=== PATIENT | female | born 1960 | race Caucasian/White ===

== ENCOUNTER 2018-03-25 17:18 | Observation (INO) ==
[2018-03-25] MEDS ORDERED: Ondansetron 4 MG/2 ML VIAL IVP ONE (18:18)
[2018-03-25] MEDS ORDERED: 0.9 % Sodium Chloride 1,000 ML IVC ONE (18:18)
--- NOTE | 2018-03-25 18:36 | Emergency Department Note ---
Disposition Clinical Impression: Vertigo Vomiting Qualifiers: Vomiting type: unspecified Vomiting Intractability: intractable Nausea presence : with nausea Qualified Code(s): R11.2 - Nausea with vomiting, unspecified Disposition: Still a Patient Condition: Fair Forms: ED Satisfaction Letter Dizziness HPI - General Chief Complaint: ED Dizziness Stated Complaint: N/V Anxiety Attack from Time Seen by Provider: 03/25/18 18:14 Source: EMS Limitations: no limitations Nursing Notes Reviewed: Yes Vital Signs Reviewed: Yes - History of Present Illness HPI Narrative: Patient does have a history of a CVA 26 years ago with chronic difficulty moving her right upper extremity and presents today with vertiginous dizziness that began at home this morning around 8:00 and then significantly worsened at 3 :00 this afternoon however she has had this all day. She does have associated vomiting. No localized numbness or weakness of extremities, slurred speech, facial droop or confusion in no pain. No chest pain or abdominal pain or head pain. She denies any fever, blood in the urine or stool, skin rash. Social history: Smoker, occasional alcohol, no drugs I did review the previous record - Related Data Home Medications Medication Instructions Recorded Confirmed Aspirin [Lo-Dose Aspirin EC] 81 mg PO DAILY 05/15/17 03/25/18 LORazepam [Ativan] 0.25 - 0.5 mg PO DAILY 05/15/17 03/25/18 Lansoprazole [Prevacid] 30 mg PO DAILY 05/15/17 03/25/18 Cinnamon Bark [Cinnamon] 500 mg PO DAILY 03/25/18 03/25/18 Loratadine [Allergy Relief] 10 mg PO DAILY 03/25/18 03/25/18 Allergies Allergy/AdvReac Type Severity Reaction Status Date / Time acetaminophen [From Percocet] AdvReac Redness of Verified 03/25/18 18:27 Skin Oxycodone [From Percocet] AdvReac Redness of Verified 03/25/18 18:27 Skin Review of Systems: Constitutional: No fever Vision: No blurred vision ENT: No rhinorrhea Respiratory: No cough Allergic: No allergies : No blood in urine GI: No blood in stool Hematologic: No bruising Dermatologic: No skin rash Musculoskeletal: No pain in the extremities Neuro: No numbness of the extremities Past Medical History - Past Medical History Medical history: Reports: asthma, CVA, GERD Psychiatric history: Reports: anxiety, panic disorder 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 - Social History Smoking Status: Current some day smoker Smokeless Tobacco Status: No Alcohol use: Reports: occasionally Drug use: Reports: none Physical Exam CONSTITUTIONAL: Ill-appearing, upper body strength from side to side, breathing comfortably, skin color is good, no respiratory distress EYES: PERRL, EOMI, no scleral icterus NOSE: The nose is normal in appearance without rhinorrhea NECK: Supple without rigidity RESP: Normal chest excursion with respiration; breath sounds clear and equal bilaterally; no wheezes, rhonchi, or rales CARD: Regular rhythm, without murmurs, rub or gallop ABD: Non-distended; non-tender, soft, without rigidity, rebound or guarding SKIN: Normal for age and race; warm and dry; no apparent lesions, no rash NEUROLOGICAL: Patient is alert and oriented times three. Cranial nerves III- XII are intact. Sensory and motor functions are intact. Strength is 5/5 for flexion and extension in all 4 extremities. Patellar DTRS are equal and intact. Finger to nose testing is normal on the left than on the right side is negative my finger NIH stroke scale equals 2 - General Limitations: no limitations General appearance: alert, in no apparent distress Course Vital Signs Temperature 97.8 F 03/25/18 17:21 Pulse Rate 68 03/25/18 17:21 Respiratory Rate 18 03/25/18 17:21 Blood Pressure 120/74 03/25/18 17:21 O2 Sat by Pulse Oximetry 100 03/25/18 17:21 Temperature 97.8 F 03/25/18 18:09 Pulse Rate 68 03/25/18 18:09 Respiratory Rate 18 03/25/18 18:09 Blood Pressure 120/74 03/25/18 18:09 O2 Sat by Pulse Oximetry 100 03/25/18 18:09 Oxygen Delivery Oxygen Delivery Room Air Dizziness - MDM Narrative Medical decision making narrative: Patient's symptoms are concerning for CVA and seem atypical for the BPV or labyrinthitis. Head CT as well as labs are pending. I did review her EKG showing normal sinus rhythm with a rate of 61 without acute ischemic change. Patient will be admitted to the hospital. CT scan is pending 1839 - Lab Data Result diagrams: 03/25/18 17:24 03/25/18 17:24 Lab Results 03/25/18 03/25/18 Range/Units 17:24 17:24 WBC 6.3 (4.3-11.1) K/mcL RBC 4.66 (3.82-4.97) M/mcL Hgb 13.6 (11.5-15.4) g/dL Hct 38.4 (35.3-44.9) % MCV 82.4 L (83.0-100.0) fL MCH 29.2 (28.0-33.3) pg MCHC 35.4 (31.6-35.5) g/dL RDW 12.3 (11.5-14.5) % Plt Count 334 (140-400) K/mcL MPV 10.7 (9.4-12.4) fL Immature Gran % 0.2 (0-4) % Seg Neutrophils % 72.4 % Lymphocytes % 15.0 % Monocytes % 11.0 % Eosinophils % 0.8 % Basophils % 0.6 % Neutrophils # 4.6 (1.6-8.9) K/mcL Lymphocytes # 0.9 (0.6-4.6) K/mcL Monocytes # 0.7 (0.0-1.3) K/mcL Eosinophils # 0.1 (0.0-0.6) K/mcL Basophils # 0.0 (0.0-0.2) K/mcL Sodium 126 L (136-145) mEq/L Potassium 3.0 L (3.5-5.1) mEq/L Chloride 88 L (98-107) mEq/L Carbon Dioxide 21 L (23-29) mEq/L BUN 8 (6-20) mg/dL Creatinine 0.57 L (0.60-1.20) mg/dL Est GFR ( Amer) > 60 (> 60) Est GFR (Non-Af Amer) > 60 (> 60) BUN/Creatinine Ratio 14 (6-26) Glucose 105 (70-105) mg/dL Calculated Osmolality 261 L (280-300) Calcium 9.6 (8.6-10.3) mg/dL Total Bilirubin 1.2 H (0.3-1.0) mg/dL Direct Bilirubin 0.2 (0.0-0.2) mg/dL Indirect Bilirubin 1.0 (0.0-1.2) mg/dL AST 23 (13-39) Units/L ALT 18 (7-52) Units/L Alkaline Phosphatase 91 (34-104) Units/L Serum Total Protein 7.7 (6.4-8.9) g/dL Albumin 4.7 (3.5-5.7) g/dL Globulin 3.0 (2.4-3.5) g/dL Albumin/Globulin Ratio 1.6 (1.1-2.2) Lipase 42 (11-82) Units/L NIH Stroke Scale - Level of Consciousness LOC: Alert - LOC Questions LOC Questions: Answers both correctly - LOC Commands LOC Commands: Performs both correctly - Best Gaze Best Gaze: Normal - Visual Visual: No visual loss - Facial Palsy Facial Palsy: Normal - Motor Arms Motor Arm-Left: No drift for 10 seconds Motor Arm-Right: Drift, does NOT hit bed - Motor Legs Motor Leg-Left: No drift for 5 seconds Motor Leg-Right: No drift for 5 seconds - Limb Ataxia Limb Ataxia: Present in ONE limb - Sensory Sensory: Normal - Best Language Best Language: No aphasia - Dysarthria Dysarthria: Normal - Extinction and Inattention Extinction and Inattention: Normal - NIHSS Total Score NIHSS Total Score: 2
[2018-03-25 18:37] LABS: Basophils % 0.6 %; Eosinophils # 0.1 K/mcL (0.0-0.6); Eosinophils % 0.8 %; Hematocrit 38.4 % (35.3-44.9); Hemoglobin 13.6 g/dL (11.5-15.4); Immature Granulocytes % 0.2 % (0-4); Lymphocytes # 0.9 K/mcL (0.6-4.6); Mean Corpuscular HGB Conc 35.4 g/dL (31.6-35.5); Mean Corpuscular Hemoglobin 29.2 pg (28.0-33.3); Mean Corpuscular Volume 82.4 fL (83.0-100.0); Mean Platelet Volume 10.7 fL (9.4-12.4); Monocytes # 0.7 K/mcL (0.0-1.3); Neutrophils # 4.6 K/mcL (1.6-8.9); Platelet Count 334 K/mcL (140-400); Red Blood Count 4.66 M/mcL (3.82-4.97); Red Cell Distribution Width 12.3 % (11.5-14.5); Segmented Neutrophils % 72.4 %
[2018-03-25 18:43] LABS: Alanine Aminotransferase 18 Units/L (7-52); Albumin 4.7 g/dL (3.5-5.7); Albumin/Globulin Ratio 1.6 (1.1-2.2); Alkaline Phosphatase 91 Units/L (34-104); Aspartate Amino Transferase 23 Units/L (13-39); BUN/Creatinine Ratio 14 (6-26); Bilirubin,Direct 0.2 mg/dL (0.0-0.2); Bilirubin,Total 1.2 mg/dL (0.3-1.0); Blood Urea Nitrogen 8 mg/dL (6-20); Calcium 9.6 mg/dL (8.6-10.3); Carbon Dioxide 21 mEq/L (23-29); Chloride 88 mEq/L (98-107); Glucose 105 mg/dL (70-105); Lipase 42 Units/L (11-82); Osmolality,Calculated 261 (280-300); Sodium 126 mEq/L (136-145); Total Protein 7.7 g/dL (6.4-8.9); eGFR For African Americans > 60 (> 60); eGFR For Non-African Americans > 60 (> 60)
--- NOTE | 2018-03-25 20:54 | Emergency Department Note ---
Disposition Clinical Impression: Vertigo, Hyponatremia, Hypokalemia, Dehydration Vomiting Qualifiers: Vomiting type: unspecified Vomiting Intractability: intractable Nausea presence : with nausea Qualified Code(s): R11.2 - Nausea with vomiting, unspecified Disposition: Admitted As Inpatient Condition: Fair Forms: ED Satisfaction Letter Time of Disposition: 20:54 Dizziness HPI - General Chief Complaint: ED Dizziness Stated Complaint: N/V Anxiety Attack from UC Time Seen by Provider: 03/25/18 18:14 Source: EMS Limitations: no limitations Nursing Notes Reviewed: Yes Vital Signs Reviewed: Yes - Related Data Home Medications Medication Instructions Recorded Confirmed Aspirin [Lo-Dose Aspirin EC] 81 mg PO DAILY 05/15/17 03/25/18 LORazepam [Ativan] 0.25 - 0.5 mg PO DAILY 05/15/17 03/25/18 Lansoprazole [Prevacid] 30 mg PO DAILY 05/15/17 03/25/18 Cinnamon Bark [Cinnamon] 500 mg PO DAILY 03/25/18 03/25/18 Loratadine [Allergy Relief] 10 mg PO DAILY 03/25/18 03/25/18 Allergies Allergy/AdvReac Type Severity Reaction Status Date / Time acetaminophen [From Percocet] AdvReac Redness of Verified 03/25/18 18:27 Skin Oxycodone [From Percocet] AdvReac Redness of Verified 03/25/18 18:27 Skin Past Medical History - Past Medical History Medical history: Reports: asthma, CVA, GERD Psychiatric history: Reports: anxiety, panic disorder 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 Patient with nausea, vomiting, severe room spinning dizziness that is concerning for central vertigo. The character of the room spinning is constant and non-fatigable. CVA workup was ordered. CT of the head unremarkable. Lab work showed signs of some hyponatremia as well as hypokalemia. Patient was given IV fluids as well as potassium replacement. I discussed with the hospitalist Dr. Elliott who has accepted patient for admission for workup for possible central vertigo.. Vital Signs Temperature 97.8 F 03/25/18 17:21 Pulse Rate 68 03/25/18 17:21 Respiratory Rate 18 03/25/18 17:21 Blood Pressure 120/74 03/25/18 17:21 O2 Sat by Pulse Oximetry 100 03/25/18 17:21 Temperature 97.8 F 03/25/18 18:09 Pulse Rate 65 03/25/18 20:18 Respiratory Rate 18 03/25/18 20:18 Blood Pressure 123/79 03/25/18 20:18 O2 Sat by Pulse Oximetry 100 03/25/18 20:18 Oxygen Delivery Oxygen Delivery Room Air Dizziness - Medical Records Medical records reviewed: Yes I reviewed the patient's medical records. - Lab Data Lab results reviewed: Yes I reviewed the patient's lab results. Result diagrams: 03/25/18 17:24 03/25/18 17:24 Lab Results 03/25/18 03/25/18 Range/Units 17:24 17:24 WBC 6.3 (4.3-11.1) K/mcL RBC 4.66 (3.82-4.97) M/mcL Hgb 13.6 (11.5-15.4) g/dL Hct 38.4 (35.3-44.9) % MCV 82.4 L (83.0-100.0) fL MCH 29.2 (28.0-33.3) pg MCHC 35.4 (31.6-35.5) g/dL RDW 12.3 (11.5-14.5) % Plt Count 334 (140-400) K/mcL MPV 10.7 (9.4-12.4) fL Immature Gran % 0.2 (0-4) % Seg Neutrophils % 72.4 % Lymphocytes % 15.0 % Monocytes % 11.0 % Eosinophils % 0.8 % Basophils % 0.6 % Neutrophils # 4.6 (1.6-8.9) K/mcL Lymphocytes # 0.9 (0.6-4.6) K/mcL Monocytes # 0.7 (0.0-1.3) K/mcL Eosinophils # 0.1 (0.0-0.6) K/mcL Basophils # 0.0 (0.0-0.2) K/mcL Sodium 126 L (136-145) mEq/L Potassium 3.0 L (3.5-5.1) mEq/L Chloride 88 L (98-107) mEq/L Carbon Dioxide 21 L (23-29) mEq/L BUN 8 (6-20) mg/dL Creatinine 0.57 L (0.60-1.20) mg/dL Est GFR ( Amer) > 60 (> 60) Est GFR (Non-Af Amer) > 60 (> 60) BUN/Creatinine Ratio 14 (6-26) Glucose 105 (70-105) mg/dL Calculated Osmolality 261 L (280-300) Calcium 9.6 (8.6-10.3) mg/dL Total Bilirubin 1.2 H (0.3-1.0) mg/dL Direct Bilirubin 0.2 (0.0-0.2) mg/dL Indirect Bilirubin 1.0 (0.0-1.2) mg/dL AST 23 (13-39) Units/L ALT 18 (7-52) Units/L Alkaline Phosphatase 91 (34-104) Units/L Serum Total Protein 7.7 (6.4-8.9) g/dL Albumin 4.7 (3.5-5.7) g/dL Globulin 3.0 (2.4-3.5) g/dL Albumin/Globulin Ratio 1.6 (1.1-2.2) Lipase 42 (11-82) Units/L - Radiology Data Radiology results reviewed: Yes I reviewed the patient's radiology results. Head CT 03/25/18 18:15 IMPRESSION: No acute intracranial abnormality. D/ / Virgil Paige MD / Virgil Paige MD Interpreting Provider: Virgil Paige MD
--- NOTE | 2018-03-25 21:46 | Internal Med History&Physical ---
<AhujaBabak - Last Filed: 03/25/18 21:41> Date of Encounter: 03/25/18 Time of Encounter: 21:30 Internal Medicine - H&P: HPI Chief complaint: weakness Admitted From: Emergency Dept Plans for Post Hospital Care: Home History of present illness: Ms. Fairbanks is a 57 year old female with PMHx of anxiety, previous CVA 25+ years ago with chronic difficulty moving her right upper extremity presents today with vertigo and dizziness associated with vomiting that started this morning. Patient reports that she has had many episodes this year, but it worsened today in the afternoon and she decided to go to urgent care, where she received nausea medication and was sent to [facility] ED. Patient reports that she was on the cough this AM and might have loss conciousness. Weakness and dizziness gets worse with movement and she currently feels like the room is spinning. She admits to blurry vision. She has clear vomit throughout the day and has been unable to tolerate PO intake due to nausea. Currently, she has complaints of palpitations, chest pain, SOB, BL hand tingling, which she reports is similar to her episodes of panic. She denies fever or chills, abdominal pain, diarrhea, constipation. 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 Denies illicit drug use. No further acute complaints. Past Med Surg Social Fam HX - Past Medical History Medical history: asthma, CVA, GERD Psychiatric history: anxiety, panic disorder - Social History Smoking Status: Current some day smoker Smokeless Tobacco Status: No Alcohol use: occasionally Drug use: none Internal Medicine - H&P: Meds Aspirin [Lo-Dose Aspirin EC] 81 mg PO DAILY 05/15/17 [History] LORazepam [Ativan] 0.25 - 0.5 mg PO DAILY 05/15/17 [History] Lansoprazole [Prevacid] 30 mg PO DAILY 05/15/17 [History] Cinnamon Bark [Cinnamon] 500 mg PO DAILY 03/25/18 [History] Loratadine [Allergy Relief] 10 mg PO DAILY 03/25/18 [History] 3 Allergy/AdvReac Type Severity Reaction Status Date / Time acetaminophen [From Percocet] AdvReac Redness of Verified 03/25/18 18:27 Skin Oxycodone [From Percocet] AdvReac Redness of Verified 03/25/18 18:27 Skin All Systems PM: A 10-system review of systems was performed and is negative for pertinent findings except as documented above in the HPI. - Constitutional Constitutional: as per HPI, no chills, no fever(s), no night sweats - EENT Eyes: as per HPI, blurry vision, no change in vision, no discharge, no pain, no photophobia Ears: no ear discharge, no ear pain, no tinnitus Nose, mouth and throat: no dysphagia, no nasal discharge, no neck pain, no sore throat - Cardiovascular Cardiovascular ROS IM: dyspnea, no diaphoresis, no lightheadedness, no palpitations, no syncope - Respiratory Respiratory: no cough, no wheezing, no excessive phlegm production - Gastrointestinal Gastrointestinal: no abdominal pain, no diarrhea, no hematemesis, no hematochezia, no melena, no nausea, no vomiting - Genitourinary Genitourinary: no change in urinary stream, no dysuria, no flank pain, no hematuria - Musculoskeletal Musculoskeletal ROS IM: no numbness, no tingling - Integumentary Integumentary IM: no rash, no unusual bruising - Neurological Neurological ROS: numbness, tingling, no confusion, no convulsions, no focal weakness, no tremor(s) - Hematologic/Lymphatic Hematologic/Lymphatic: no easy bruising - Constitutional Vitals: Temp Pulse Resp BP Pulse Ox 97.8 F 71 18 123/79 100 03/25/18 18:09 03/25/18 21:26 03/25/18 21:26 03/25/18 21:26 03/25/18 21:26 General appearance: Present: A&O X 3, underweight Exam: Patient is in distress. Cannot keep eye contact. Fast speech. - Head Head exam: Present: atraumatic, normocephalic - Eye Eye exam: Present: conjuntiva pink, sclera anicteric - Neck Neck exam general surgery: Present: supple, trachea midline. Absent: lymphadenopathy - Respiratory Respiratory exam: Present: CTAB. Absent: accessory muscle use, rales, rhonchi, wheezes - Cardiovascular Cardiovascular exam: Present: +S1, +S2, tachycardia. Absent: diastolic murmur, gallop, rubs, systolic murmur - GI/Abdominal GI/Abdominal exam: Present: normal bowel sounds, soft, no peritoneal signs. Absent: distended, tenderness - Extremities Exam Extremities exam: Present: warm, radial pulses palpable and symmetrical. Absent : calf tenderness, cyanotic, pedal edema Additional comments: Right upper extremity weakness - Neurological Exam Neurological exam: Present: CN II-XII intact, oriented X3, no focal deficits. Absent: pronater drift, facial droop, speech deficit - Skin Skin exam: Present: dry, intact Internal Med - H&P Results - Labs CBC & Chem 7: 03/25/18 17:24 03/25/18 17:24 Labs: Short CBC 03/25/18 Range/Units 17:24 WBC 6.3 (4.3-11.1) K/mcL Hgb 13.6 (11.5-15.4) g/dL Hct 38.4 (35.3-44.9) % Plt Count 334 (140-400) K/mcL Neutrophils # 4.6 (1.6-8.9) K/mcL BMP 03/25/18 17:24 Sodium 126 L Potassium 3.0 L Chloride 88 L Carbon Dioxide 21 L BUN 8 Creatinine 0.57 L Glucose 105 Calcium 9.6 Liver Function 03/25/18 Range/Units 17:24 Total Bilirubin 1.2 H (0.3-1.0) mg/dL Direct Bilirubin 0.2 (0.0-0.2) mg/dL AST 23 (13-39) Units/L ALT 18 (7-52) Units/L Alkaline Phosphatase 91 (34-104) Units/L Albumin 4.7 (3.5-5.7) g/dL - Impressions ITS Impressions Head CT 03/25/18 18:15 IMPRESSION: No acute intracranial abnormality. D/ / Virgil Paige MD / Virgil Paige MD Interpreting Provider: Virgil Paige MD - Assessment and plan (1) Vertigo Current Visit: Yes Status: Acute Assessment and plan: Patient's symptoms consistent with peripheral vs central vertigo. CT Head is negative for acute process. MRI w/o contrast pending to rule out central vertigo. Pending BL carotid duplex, echo Patient can tolerate PO, OK for regular diet Start meclizine Consult Neurology accordingly if abnormal MRI (2) Vomiting Current Visit: Yes Status: Acute Assessment and plan: Continue Zofran prn Qualifiers: Vomiting type: unspecified Vomiting Intractability: intractable Nausea presence: with nausea Qualified Code(s): R11.2 - Nausea with vomiting, unspecified (3) History of CVA (cerebrovascular accident) Current Visit: Yes Status: Acute Assessment and plan: Start home aspirin (4) Hyponatremia Current Visit: Yes Status: Acute Assessment and plan: likely secondary to dehydration. Recheck with AM labs. (5) Hypokalemia Current Visit: Yes Status: Acute Assessment and plan: KCl started. Recheck with AM labs. (6) DVT prophylaxis Current Visit: Yes Status: Acute Assessment and plan: subq hep (7) Anxiety Current Visit: Yes Status: Acute Assessment and plan: Ativan as needed. Reconcile home med. - Time Spent With Patient Total time spent is greater than 50% in coordination of care (as documented) at patient's floor/unit and/or counseling patient: Greater than 35 minutes <Keyon Elliott - Last Filed: 03/26/18 05:30> Date of Encounter: 03/26/18 Internal Medicine - H&P: HPI History of present illness: Ms. Fairbanks is a 57 year old female All Systems PM: A 10-system review of systems was performed and is negative for pertinent findings except as documented above in the HPI. - Constitutional Vitals: Temp Pulse Resp BP Pulse Ox 98.6 F 67 15 122/76 99 03/26/18 03:40 03/26/18 03:40 03/26/18 03:40 03/26/18 03:40 03/26/18 03:40 Internal Med - H&P Results - Labs CBC & Chem 7: 03/25/18 17:24 03/25/18 17:24 - Attending Attestation I have seen and examined this patient independently. I have discussed with resident physician Dr Ahuja regarding the management plan. Agree with the documentation. - Assessment and plan (1) Vertigo Current Visit: Yes Status: Acute (2) Vomiting Current Visit: Yes Status: Acute Qualifiers: Vomiting type: unspecified Vomiting Intractability: intractable Nausea presence: with nausea Qualified Code(s): R11.2 - Nausea with vomiting, unspecified (3) Hyponatremia Current Visit: Yes Status: Acute (4) Hypokalemia Current Visit: Yes Status: Acute (5) History of CVA (cerebrovascular accident) Current Visit: Yes Status: Acute (6) DVT prophylaxis Current Visit: Yes Status: Acute (7) Anxiety Current Visit: Yes Status: Acute - Time Spent With Patient Total time spent is greater than 50% in coordination of care (as documented) at patient's floor/unit and/or counseling patient:
[2018-03-25] MEDS ORDERED: Naloxone 0.4 MG/ML INJ IVP PRN (21:49)
[2018-03-25] MEDS ORDERED: Gadolinium Contrast Agent (WT Based) IV PRN (21:54)
[2018-03-25] MEDS ORDERED: *HR* LORazepam 0.5 MG TABLET PO ONE (22:16)
--- NOTE | 2018-03-25 22:34 | Emergency Department Note ---
Disposition Clinical Impression: Vertigo, Hyponatremia, Hypokalemia, Dehydration Vomiting Qualifiers: Vomiting type: unspecified Vomiting Intractability: intractable Nausea presence : with nausea Qualified Code(s): R11.2 - Nausea with vomiting, unspecified Disposition: Admitted As Inpatient Condition: Fair General Adult HPI - General Chief complaint: ED Dizziness Stated complaint: N/V Anxiety Attack from UC Time Seen by Provider: 03/25/18 18:14 Source: EMS Limitations: no limitations Nursing Notes Reviewed: Yes Vital Signs Reviewed: Yes - History of Present Illness Pain Scale: 0 - Related Data Home Medications Medication Instructions Recorded Confirmed Aspirin [Lo-Dose Aspirin EC] 81 mg PO DAILY 05/15/17 03/25/18 LORazepam [Ativan] 0.25 - 0.5 mg PO DAILY 05/15/17 03/25/18 Lansoprazole [Prevacid] 30 mg PO DAILY 05/15/17 03/25/18 Cinnamon Bark [Cinnamon] 500 mg PO DAILY 03/25/18 03/25/18 Loratadine [Allergy Relief] 10 mg PO DAILY 03/25/18 03/25/18 Allergies Allergy/AdvReac Type Severity Reaction Status Date / Time acetaminophen [From Percocet] AdvReac Redness of Verified 03/25/18 18:27 Skin Oxycodone [From Percocet] AdvReac Redness of Verified 03/25/18 18:27 Skin Past Medical History - Past Medical History Medical history: Reports: asthma, CVA, GERD Psychiatric history: Reports: anxiety, panic disorder 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 - Social History Smoking Status: Current some day smoker Smokeless Tobacco Status: No Alcohol use: Reports: occasionally Drug use: Reports: none Physical Exam - General Limitations: no limitations General appearance: alert, in no apparent distress Course Vital Signs Temperature 97.8 F 03/25/18 17:21 Pulse Rate 68 03/25/18 17:21 Respiratory Rate 18 03/25/18 17:21 Blood Pressure 120/74 03/25/18 17:21 O2 Sat by Pulse Oximetry 100 03/25/18 17:21 Temperature 97.8 F 03/25/18 18:09 Pulse Rate 62 03/25/18 21:48 Respiratory Rate 18 03/25/18 21:48 Blood Pressure 124/79 03/25/18 21:48 O2 Sat by Pulse Oximetry 100 03/25/18 21:48 Oxygen Delivery Oxygen Delivery Room Air Medical Decision Making - Lab Data Result diagrams: 03/25/18 17:24 03/25/18 17:24 Lab Results 03/25/18 03/25/18 Range/Units 17:24 17:24 WBC 6.3 (4.3-11.1) K/mcL RBC 4.66 (3.82-4.97) M/mcL Hgb 13.6 (11.5-15.4) g/dL Hct 38.4 (35.3-44.9) % MCV 82.4 L (83.0-100.0) fL MCH 29.2 (28.0-33.3) pg MCHC 35.4 (31.6-35.5) g/dL RDW 12.3 (11.5-14.5) % Plt Count 334 (140-400) K/mcL MPV 10.7 (9.4-12.4) fL Immature Gran % 0.2 (0-4) % Seg Neutrophils % 72.4 % Lymphocytes % 15.0 % Monocytes % 11.0 % Eosinophils % 0.8 % Basophils % 0.6 % Neutrophils # 4.6 (1.6-8.9) K/mcL Lymphocytes # 0.9 (0.6-4.6) K/mcL Monocytes # 0.7 (0.0-1.3) K/mcL Eosinophils # 0.1 (0.0-0.6) K/mcL Basophils # 0.0 (0.0-0.2) K/mcL Sodium 126 L (136-145) mEq/L Potassium 3.0 L (3.5-5.1) mEq/L Chloride 88 L (98-107) mEq/L Carbon Dioxide 21 L (23-29) mEq/L BUN 8 (6-20) mg/dL Creatinine 0.57 L (0.60-1.20) mg/dL Est GFR ( Amer) > 60 (> 60) Est GFR (Non-Af Amer) > 60 (> 60) BUN/Creatinine Ratio 14 (6-26) Glucose 105 (70-105) mg/dL Calculated Osmolality 261 L (280-300) Calcium 9.6 (8.6-10.3) mg/dL Total Bilirubin 1.2 H (0.3-1.0) mg/dL Direct Bilirubin 0.2 (0.0-0.2) mg/dL Indirect Bilirubin 1.0 (0.0-1.2) mg/dL AST 23 (13-39) Units/L ALT 18 (7-52) Units/L Alkaline Phosphatase 91 (34-104) Units/L Serum Total Protein 7.7 (6.4-8.9) g/dL Albumin 4.7 (3.5-5.7) g/dL Globulin 3.0 (2.4-3.5) g/dL Albumin/Globulin Ratio 1.6 (1.1-2.2) Lipase 42 (11-82) Units/L Attestation Statement - Attestation Attestation: I, Dhaval Oden MD, personally evaluated this patient and discussed their management with the resident physician. I reviewed the resident's note and agree with the documented findings, medical decision making, and plan of care. This patient was signed out at shift change from Dr. Moffett and Dr. Pascual. Please refer to their notes for complete details of the history and physical examination. At shift change patient is awaiting CT results and laboratory results and hospital admission. Patient presented with vertigo that started about 8:00 this morning and then about 3 PM today she started vomiting and has vomited repeatedly since. No headache. On examination patient is a well-developed well-nourished female. She is alert and oriented 3. There is no cyanosis or diaphoresis. Breath sounds are clear and equal bilaterally. Heart regular rate and rhythm. Abdomen soft and nontender with normal bowel sounds. Labs reviewed. Hyponatremia and hypokalemia. Head CT shows no acute intracranial abnormality. The hospitalist, Dr. Elliott, was consulted and accepted admission of the patient.
[2018-03-25] MEDS ORDERED: Ondansetron 4 MG/2 ML VIAL IVP PRN (22:40)
[2018-03-25] MEDS ORDERED: *HR* Heparin 5,000 UNIT/ML VIAL SQ ONE (22:44)
[2018-03-26] MEDS ORDERED: *HR* LORazepam 1 MG TABLET PO ONE (00:44)
[2018-03-26] MEDS: *HR* Heparin 5,000 UNIT/ML VIAL SQ SCH ×2 (06:25→18:46)
[2018-03-26 07:18] LABS: Basophils % 0.4 %; Eosinophils # 0.1 K/mcL (0.0-0.6); Hematocrit 35.5 % (35.3-44.9); Hemoglobin 12.2 g/dL (11.5-15.4); Immature Granulocytes % 0.2 % (0-4); Lymphocytes # 1.8 K/mcL (0.6-4.6); Lymphocytes % 36.9 %; Mean Corpuscular HGB Conc 34.4 g/dL (31.6-35.5); Mean Corpuscular Hemoglobin 29.6 pg (28.0-33.3); Mean Corpuscular Volume 86.2 fL (83.0-100.0); Monocytes # 0.8 K/mcL (0.0-1.3); Monocytes % 16.3 %; Neutrophils # 2.2 K/mcL (1.6-8.9); Platelet Count 251 K/mcL (140-400); Red Blood Count 4.12 M/mcL (3.82-4.97); Red Cell Distribution Width 13.1 % (11.5-14.5); Segmented Neutrophils % 45.2 %
[2018-03-26 07:49] LABS: BUN/Creatinine Ratio 13 (6-26); Blood Urea Nitrogen 8 mg/dL (6-20); Calcium 8.8 mg/dL (8.6-10.3); Carbon Dioxide 24 mEq/L (23-29); Glucose 84 mg/dL (70-105); eGFR For African Americans > 60 (> 60); eGFR For Non-African Americans > 60 (> 60)
[2018-03-26] MEDS: Aspirin Enteric Coated 81 MG Tablet PO SCH (08:25)
[2018-03-26] MEDS: Loratadine 10 MG TABLET PO SCH (08:25)
[2018-03-26] MEDS: *HR* LORazepam 0.5 MG TABLET PO SCH (08:26)
[2018-03-26 09:45] LABS: Chloride 106 mEq/L (98-107); Osmolality,Calculated 286 (280-300); Sodium 139 mEq/L (136-145)
--- NOTE | 2018-03-26 15:59 | Electrocardiograph Report ---
[place] [id number] Test Date: 2018-03-25 Pat Name: Nissa Fairbanks Department: 103 Room: 3B54 Gender: F Dental Specialist: LARRY : 1960 Requested By: Gilbert Pascual Order Number: [id number] Reading MD: Kati Cherry Measurements Intervals [place] Rate: 61 P: 60 AR: 115 QRS: 69 QRSD: 81 T: 57 QT: 460 QTc: 462 Interpretive Statements SINUS RHYTHM WITH SHORT AR INTERVAL Electronically Signed On 03-26-2018 15:58:18 EDT by Kati Cherry
--- NOTE | 2018-03-26 20:19 | Internal Med Progress Note ---
Date of Encounter: 03/26/18 Time of Encounter: 11:30 - Assessment and plan (1) Vertigo Current Visit: Yes Status: Acute Assessment and plan: Patient continues to complain of nausea and dizziness. CT head is negative. MRI is negative. Noted is an unchanged encephalomalacia with gliosis involving the left posterior frontal/parietal lobe. This may represent sequela of prior ischemic or traumatic insult. Echocardiogram shows LVEF of 60% with normal LV diastolic function, mild TR, no evidence of PFO. Head CT is negative. Vitals and labs are stable and within normal limits. On arrival, patient had some mild hyponatremia hypokalemia, both of which have resolved. Continue meclizine for dizziness, Zofran for nausea. Continue to monitor for safety and falls. (2) Vomiting Current Visit: Yes Status: Acute Assessment and plan: Anti-emetics when necessary Qualifiers: Vomiting type: unspecified Vomiting Intractability: intractable Nausea presence: with nausea Qualified Code(s): R11.2 - Nausea with vomiting, unspecified (3) Hyponatremia Current Visit: Yes Status: Resolved Assessment and plan: Resolved. Continue to monitor. (4) Hypokalemia Current Visit: Yes Status: Resolved Assessment and plan: Resolved. Continue to monitor. (5) History of CVA (cerebrovascular accident) Current Visit: Yes Status: Acute Assessment and plan: History of prior CVA with right-sided deficit. Noticeable weakness and spasticity to right upper extremity. Gait Is unsteady when she begins to walk. Continue home dose of aspirin Monitor for safety and falls. (6) DVT prophylaxis Current Visit: Yes Status: Acute Assessment and plan: Heparin (7) Anxiety Current Visit: Yes Status: Acute Assessment and plan: Chronic. Continue Ativan home dose 2.5 mg by mouth daily. - Time Spent With Patient Total time spent is greater than 50% in coordination of care (as documented) at patient's floor/unit and/or counseling patient: less than 15 minutes - Subjective Interval history: Patient was seen and assessed the bedside left and 30 a.m. She is alert, awake , oriented. She reports that she has had some vertigo, dizziness, vomiting with some hypotension recently. Dizziness and nausea onset approximately 1 month ago. She states that this time she had anxiety with it and that prompted her visit to the emergency department. She states that she is still having dizziness and nausea. She denies headache, blurred vision, chest pain or shortness of breath. No vomiting or diarrhea or abdominal pain. Patient reports that despite the fact she is not improved, she wants to leave because she has to go to [place] on Friday - Constitutional Vitals: Temp Pulse Resp BP Pulse Ox 98.2 F 71 14 103/59 98 03/26/18 20:09 03/26/18 20:09 03/26/18 20:09 03/26/18 20:09 03/26/18 20:09 General appearance: Present: cooperative, A&O X 3, pleasant, no acute distress, underweight - Head Head exam: Present: atraumatic, normal inspection, normocephalic - Eye Eye exam: Present: EOMI, normal appearance, conjuntiva pink, sclera anicteric. Absent: nystagmus Pupils: Present: PERRL - Neck Neck exam general surgery: Present: supple, trachea midline. Absent: lymphadenopathy, tenderness - Respiratory Respiratory exam: Present: CTAB. Absent: accessory muscle use, rales, respiratory distress, rhonchi, wheezes - Cardiovascular Cardiovascular exam: Present: RRR, +S1, +S2. Absent: diastolic murmur, gallop, rubs, systolic murmur - GI/Abdominal GI/Abdominal exam: Present: normal bowel sounds, soft. Absent: distended, hernia, hepatomegaly, tenderness - Extremities Exam Extremities exam: Present: normal capillary refill, normal inspection, warm, radial pulses palpable and symmetrical. Absent: calf tenderness, cyanotic, pedal edema, tenderness - Neurological Exam Neurological exam: Present: alert, oriented X3, no focal deficits. Absent: altered, facial droop, speech deficit - Skin Skin exam: Present: dry, intact, normal color, warm. Absent: rash Internal Medicine: Result - Labs CBC & Chem 7: 03/26/18 06:14 03/26/18 06:14 Labs: Short CBC 03/26/18 Range/Units 06:14 WBC 4.9 (4.3-11.1) K/mcL Hgb 12.2 (11.5-15.4) g/dL Hct 35.5 (35.3-44.9) % Plt Count 251 (140-400) K/mcL Neutrophils # 2.2 (1.6-8.9) K/mcL BMP 03/26/18 06:14 Sodium 139 D Potassium 4.0 D Chloride 106 Carbon Dioxide 24 BUN 8 Creatinine 0.61 Glucose 84 Calcium 8.8 - Impressions Impressions Echocardiogram 03/26/18 09:00 Impressions: LVEF 60%. Normal left ventricular diastolic function. Normal right ventricular structure and function. Mild tricuspid regurgitation. No pulmonary hypertension. No evidence of PFO with agitated saline contrast. Left Ventricular Wall Motion: Rest Echo Findings All wall segments showed normal motion. Findings: Study Quality * Technically adequate exam. ECG Findings * Normal sinus rhythm. Left Ventricle * LVEF 60%. * Normal LV chamber size, wall thickness and function. * Normal left ventricular diastolic function. Right Ventricle * Normal right ventricular structure and function. Left Atrium * Normal left atrial size. Right Atrium * Normal right atrial size. Aortic Valve * No aortic regurgitation. * Trileaflet aortic valve. * No aortic stenosis. Mitral Valve * No mitral stenosis. * Trace mitral regurgitation. * Normal mitral valve structure. Tricuspid Valve * Normal tricuspid valve structure. * Mild tricuspid regurgitation. * Estimated RA pressure is 3 mmHg. * Estimated RVSP is 25 mmHg. * No pulmonary hypertension. Pulmonic Valve * Pulmonic valve is not well visualized. * No pulmonic stenosis. * No pulmonic regurgitation. Pulmonary Artery * Pulmonary artery not well visualized. Aorta * Normally sized aortic root. Pericardium * There is no pericardial effusion present. Interatrial Septum * No evidence of PFO by color Doppler. * No evidence of PFO with agitated saline contrast. IVC * Normal IVC dimensions and inspiratory collapse. Brain MRI 03/26/18 22:10 IMPRESSION: 1. No acute intracranial abnormality. No acute infarct. 2. Unchanged encephalomalacia with gliosis involving the left posterior frontal/parietal lobe. This may represent sequelae of a prior ischemic or traumatic insult. D/ / Jr Angeles MD / Jr Angeles MD Interpreting Provider: Jr Angeles MD Consult Discharge Plan - Plan Referrals: Teri Marquez, [employer]ATOR [Primary Care Provider] -
[2018-03-27] MEDS: *HR* Heparin 5,000 UNIT/ML VIAL SQ SCH (05:23)
[2018-03-27 06:38] LABS: Basophils # 0.1 K/mcL (0.0-0.2); Eosinophils # 0.2 K/mcL (0.0-0.6); Eosinophils % 4.5 %; Hematocrit 34.8 % (35.3-44.9); Hemoglobin 11.5 g/dL (11.5-15.4); Immature Granulocytes % 0.2 % (0-4); Lymphocytes % 40.3 %; Mean Corpuscular Hemoglobin 29.4 pg (28.0-33.3); Mean Platelet Volume 11.1 fL (9.4-12.4); Monocytes # 0.6 K/mcL (0.0-1.3); Monocytes % 12.3 %; Platelet Count 226 K/mcL (140-400); Red Blood Count 3.91 M/mcL (3.82-4.97); Red Cell Distribution Width 13.2 % (11.5-14.5); Segmented Neutrophils % 41.7 %
[2018-03-27 06:59] LABS: BUN/Creatinine Ratio 23 (6-26); Blood Urea Nitrogen 13 mg/dL (6-20); Calcium 8.5 mg/dL (8.6-10.3); Carbon Dioxide 24 mEq/L (23-29); Chloride 110 mEq/L (98-107); Glucose 96 mg/dL (70-105); Osmolality,Calculated 290 (280-300); Potassium 4.1 mEq/L (3.5-5.1); Sodium 140 mEq/L (136-145); eGFR For African Americans > 60 (> 60); eGFR For Non-African Americans > 60 (> 60)
[2018-03-27] MEDS: Aspirin Enteric Coated 81 MG Tablet PO SCH (09:20)
[2018-03-27] MEDS: Loratadine 10 MG TABLET PO SCH (09:20)
[2018-03-27] MEDS: *HR* LORazepam 0.5 MG TABLET PO SCH (09:20)
[2018-03-27 12:25] VITALS: BP 114/75
--- NOTE | 2018-03-27 14:12 | Discharge Summary ---
- NOTES TO OUTPATIENT PROVIDER Notes to Outpatient Provider: Pt was admitted for dizziness/vertigo. Echo with pEF, no valvular dysfunction, MRI negative, Head CT negative, carotids with non -stenotic plaque bilaterally. Vitals stable, labs WNL. She reports some hypotension at home, recommend holding or stopping Ativan. Recommend follow up with ENT for vertigo after she returns home from her trip. Date of Encounter: 03/27/18 Time of Encounter: 11:20 - Discharge Diagnosis (1) Vertigo Priority: Primary Status: Acute Assessment and Plan: Patient continues to complain dizziness today, reports minimal relief from Meclizine. CT head is negative. MRI is negative. Noted is an unchanged encephalomalacia with gliosis involving the left posterior frontal/parietal lobe. This may represent sequela of prior ischemic or traumatic insult. Echocardiogram shows LVEF of 60% with normal LV diastolic function, mild TR, no evidence of PFO. Head CT is negative. Carotids with nonstenotic plaque bilaterally Vitals and labs are stable and within normal limits. On arrival, patient had some mild hyponatremia hypokalemia, both of which have resolved. Continue meclizine for dizziness, Zofran for nausea. Spoke with Dr. Soriano by phone, states may try short course of steroids for dizziness. Pt may follow up with PCP and ENT if dizziness not resolved after she returns home. Meclizine 25mg po TID, Zofran 4mg po q6h prn, Prednisone taper (2) Vomiting Priority: Secondary Status: Acute Assessment and Plan: Resolved. Qualifiers: Vomiting type: unspecified Vomiting Intractability: intractable Nausea presence: with nausea Qualified Code(s): R11.2 - Nausea with vomiting, unspecified (3) Hyponatremia Priority: Secondary Status: Resolved Assessment and Plan: Resolved. (4) Hypokalemia Priority: Secondary Status: Resolved Assessment and Plan: Resolved. (5) History of CVA (cerebrovascular accident) Priority: Secondary Status: Acute Assessment and Plan: History of prior CVA with right-sided deficit. Noticeable weakness and spasticity to RUE. Continue home dose of aspirin (6) DVT prophylaxis Priority: Secondary Status: Acute Assessment and Plan: Heparin (7) Anxiety Priority: Secondary Status: Acute Assessment and Plan: Chronic. Continue Ativan. Hospital course: Ms. Fairbanks is a 57 year old female with past medical history of prior CVA and anxiety. Patient presented to the emergency room with nausea, vomiting, dizziness that started the morning of admission. She reports frequent episodes of dizziness but worse on the day of admission. At the time of admission she reported weakness and blurry vision, some emesis and was unable to tolerate by mouth intake due to nausea. Lipid time of admission she also has palpitations, chest pain, shortness of breath and bilateral hand tingling, which she states is same as her episodes of anxiety. MRI was negative, carotids with nonstenotic plaque bilaterally, CT head negative. Echo with preserved ejection fraction and normal LV DD no evidence of PFO, mild TR. Labs were stable and within normal limits, vital signs were stable and within normal limits. Patient denies any relief from dizziness with meclizine, nausea has resolved. Patient is able to ambulate easily through the department as even left the unit to go to the vending machine. She denies any difficulty with walking, her gait is steady. I did a curbside consultation with neurology, he states it is appropriate to do a prednisone taper for dizziness. At this point I believe patient has more BPPV and could require follow-up with ENT after discharge. Patient is requesting to leave because she has to go to [place]. I have told her she should not drive until she follows up with primary care. Patient will be discharged with meclizine, prednisone taper, Zofran ODT for nausea. She is stable and appropriate for discharge. Discharge discussed with: patient - Time Spent with Patient Total time spent providing and/or coordinating discharge services: Less than 30 minutes - Discharge Medications Prescriptions: Meclizine [Antivert] 25 mg PO TID PRN #60 tablet PRN Reason: Dizziness Ondansetron ODT [Zofran ODT] 4 mg PO Q6H PRN #20 tab.rapdis PRN Reason: Nausea predniSONE [PredniSONE] 10 mg PO DAILY #31 tablet Home Medications: Aspirin [Lo-Dose Aspirin EC] 81 mg PO DAILY 05/15/17 [History] LORazepam [Ativan] 0.25 - 0.5 mg PO DAILY 05/15/17 [History] Lansoprazole [Prevacid] 30 mg PO DAILY 05/15/17 [History] Cinnamon Bark [Cinnamon] 500 mg PO DAILY 03/25/18 [History] Loratadine [Allergy Relief] 10 mg PO DAILY 03/25/18 [History] Meclizine [Antivert] 25 mg PO TID PRN #60 tablet 03/27/18 [Rx] Ondansetron ODT [Zofran ODT] 4 mg PO Q6H PRN #20 tab.rapdis 03/27/18 [Rx] predniSONE [PredniSONE] 10 mg PO DAILY #31 tablet 03/27/18 [Rx] Allergies/Adverse Reactions: 3 Allergy/AdvReac Type Severity Reaction Status Date / Time acetaminophen [From Percocet] AdvReac Redness of Verified 03/25/18 18:27 Skin Oxycodone [From Percocet] AdvReac Redness of Verified 03/25/18 18:27 Skin Date of admission: 03/25/18 21:41 Primary care physician: Teri Marquez CNP Discharging clinician: Shirley Mesa Anticipated date of discharge: 03/27/18 - Constitutional Vitals: Temp Pulse Resp BP Pulse Ox 98.6 F 63 18 114/75 96 03/27/18 11:42 03/27/18 12:22 03/27/18 11:42 03/27/18 12:22 03/27/18 11:42 General appearance: Present: cooperative, A&O X 3, pleasant, no acute distress, underweight, answers questions appropriately - Head Head exam: Present: atraumatic, normal inspection, normocephalic - Eye Eye exam: Present: normal appearance, conjuntiva pink, sclera anicteric - Neck Neck exam general surgery: Present: supple, trachea midline. Absent: lymphadenopathy - Respiratory Respiratory exam: Present: CTAB. Absent: accessory muscle use, rales, rhonchi, wheezes - Cardiovascular Cardiovascular exam: Present: RRR, +S1, +S2. Absent: diastolic murmur, gallop, rubs, systolic murmur - GI/Abdominal GI/Abdominal exam: Present: normal bowel sounds, soft. Absent: distended, tenderness - Extremities Exam Extremities exam: Present: warm, radial pulses palpable and symmetrical. Absent : calf tenderness, cyanotic, pedal edema - Neurological Exam Neurological exam: Present: alert, oriented X3, no focal deficits. Absent: altered, facial droop, speech deficit - Skin Skin exam: Present: dry, intact, normal color, warm. Absent: rash - Patient Status Disposition: Home, Self-Care Condition: Good Functional capacity at discharge: independent ambulation Overall status at discharge: patient is progressing back to baseline - Discharge Instructions Follow Up With: Teri Marquez CNP [Primary Care Provider] - 04/02/18 4:10 pm Additional Instructions: Take your medications as directed. Return to the ER as needed for any other problems or concerns or if your symptoms return or worsen. Follow up with your PCP in the next 5-7 days for a recheck. Take your other medications as directed, I recommend stopping the Ativan if you are having issues with dizziness or low blood pressure. Make sure that you are drinking plenty of fluids and that you get up slowly from lying or sitting. Return to your normal activities as tolerated. - Diet and Activity Activity: increase activity as tolerated Diet: advance to your usual diet
== END 2018-03-27 16:24 | disposition home or self-care (01) ==
LOC: EMEROO 17:18 → 3ANU 17:18 → 3BNU 22:03
PROVIDERS: ADMIT Internal Medicine; ATTEND Internal Medicine

== ENCOUNTER 2020-08-06 04:16 | Observation (INO) ==
[2020-08-06] MEDS ORDERED: Isovue-370 500 ML BOTTLE IVP ONE (04:42)
[2020-08-06] MEDS ORDERED: Metoclopramide 10 MG/2 ML VIAL IVP ONE (04:43)
[2020-08-06] MEDS ORDERED: 0.9 % Sodium Chloride 1,000 ML IVC ONE (04:44)
[2020-08-06 05:00] LABS: Basophils # 0.1 K/mcL (0.0-0.2); Basophils % 0.4 %; Eosinophils # 0.1 K/mcL (0.0-0.6); Eosinophils % 0.9 %; Hematocrit 39.9 % (35.3-44.9); Hemoglobin 13.9 g/dL (11.5-15.4); Immature Granulocytes % 0.3 % (0-4); Lymphocytes # 1.3 K/mcL (0.6-4.6); Lymphocytes % 10.5 %; Mean Corpuscular HGB Conc 34.8 g/dL (31.6-35.5); Mean Corpuscular Volume 88.9 fL (83.0-100.0); Mean Platelet Volume 10.1 fL (9.4-12.4); Monocytes # 0.9 K/mcL (0.0-1.3); Monocytes % 7.2 %; Neutrophils # 9.8 K/mcL (1.6-8.9); Platelet Count 364 K/mcL (140-400); Red Blood Count 4.49 M/mcL (3.82-4.97); Red Cell Distribution Width 11.9 % (11.5-14.5); Segmented Neutrophils % 80.7 %; White Blood Count 12.2 K/mcL (4.3-11.1)
[2020-08-06 05:24] LABS: BUN/Creatinine Ratio 16 (6-26); Blood Urea Nitrogen 9 mg/dL (8-23); Calcium 9.9 mg/dL (8.6-10.3); Carbon Dioxide 27 mEq/L (23-29); Chloride 96 mEq/L (98-107); Glucose 101 mg/dL (70-105); Osmolality,Calculated 277 (280-300); Potassium 3.5 mEq/L (3.5-5.1); Sodium 134 mEq/L (136-145); eGFR For African Americans > 60 (> 60); eGFR For Non-African Americans > 60 (> 60)
[2020-08-06] MEDS ORDERED: Ketorolac 15 MG/ML VIAL IVP ONE (06:05)
[2020-08-06] MEDS ORDERED: ALPRAZolam 0.25 MG TABLET PO ONE (06:08)
[2020-08-06] MEDS ORDERED: Naloxone 0.4 MG/ML INJ IVP PRN (07:22)
[2020-08-06] MEDS ORDERED: *HR* Promethazine 25 MG/ML VIAL IVP PRN (07:22)
[2020-08-06] MEDS ORDERED: Ketorolac 15 MG/ML VIAL IVP PRN (07:27)
[2020-08-06] MEDS ORDERED: *HR* LORazepam 0.5 MG TABLET PO PRN (08:50)
[2020-08-06] MEDS: Aspirin Enteric Coated 81 MG Tablet PO SCH (09:19)
[2020-08-06] MEDS: 0.9 % Sodium Chloride 1,000 ML IVC SCH ×2 (09:19→20:23)
[2020-08-06] MEDS: Loratadine 10 MG TABLET PO SCH (09:19)
[2020-08-06] MEDS: Ciprofloxacin/Dex *EAR* Susp 7.5 ML BOTTLE BOTH EARS SCH ×2 (13:36→22:24)
[2020-08-07 05:33] LABS: Basophils % 0.9 %; Eosinophils # 0.1 K/mcL (0.0-0.6); Eosinophils % 2.4 %; Hematocrit 36.7 % (35.3-44.9); Immature Granulocytes % 0.4 % (0-4); Lymphocytes # 1.8 K/mcL (0.6-4.6); Lymphocytes % 38.8 %; Mean Corpuscular HGB Conc 32.2 g/dL (31.6-35.5); Mean Corpuscular Hemoglobin 30.3 pg (28.0-33.3); Mean Corpuscular Volume 94.1 fL (83.0-100.0); Mean Platelet Volume 10.5 fL (9.4-12.4); Monocytes # 0.7 K/mcL (0.0-1.3); Monocytes % 13.9 %; Platelet Count 270 K/mcL (140-400); Red Cell Distribution Width 12.4 % (11.5-14.5); Segmented Neutrophils % 43.6 %
[2020-08-07 05:34] LABS: Hemoglobin 11.8 g/dL (11.5-15.4); Neutrophils # 2.1 K/mcL (1.6-8.9); White Blood Count 4.7 K/mcL (4.3-11.1)
[2020-08-07 05:48] LABS: BUN/Creatinine Ratio 23 (6-26); Blood Urea Nitrogen 13 mg/dL (8-23); Calcium 8.2 mg/dL (8.6-10.3); Carbon Dioxide 25 mEq/L (23-29); Chloride 111 mEq/L (98-107); Glucose 101 mg/dL (70-105); Osmolality,Calculated 292 (280-300); Potassium 3.9 mEq/L (3.5-5.1); Sodium 141 mEq/L (136-145); eGFR For African Americans > 60 (> 60); eGFR For Non-African Americans > 60 (> 60)
[2020-08-07] MEDS: Aspirin Enteric Coated 81 MG Tablet PO SCH (08:57)
[2020-08-07] MEDS: Loratadine 10 MG TABLET PO SCH (08:57)
[2020-08-07 10:05] VITALS: BP 119/75
[2020-08-07] MEDS ORDERED: FLU Vac QV 20-21 (6Month+)/PF 0.5 ML SYRINGE IM ONE (11:31)
== END 2020-08-07 11:53 | disposition home or self-care (01) ==
LOC: EMEROOARM 04:16 → 3ANU 04:16
PROVIDERS: ADMIT Internal Medicine; ATTEND Internal Medicine